=== PATIENT | female | born 1960 | race Caucasian/White ===

== ENCOUNTER 2019-03-13 06:23 | Day surgery (SDC) | payer OTHER ==
[~2019-03-13] VITALS: Ht 157.5 cm; Wt 77.7 kg
[~2019-03-13 06:23] MED LIST: ALLO300 PO; BUME1TAB17 PO; COLC0.6T67 PO; DABI150 PO; FAMO20 PO; FERR-89 PO; FOLI1 PO; IRBE150T51 PO; LEVO150 PO; METO-391 PO; SODIUM CHLORIDE 0.9% 1,000 ML IV ONE; SPIR50 PO; [UNRECOGNIZED DRUG - CODE] PO
[2019-03-13] MEDS ORDERED: PROPOFOL 1% 20 ML VIAL IVP ONE (12:00)
[2019-03-13] MEDS ORDERED: LIDOCAINE/PF 2% 5 ML VIAL INJ ONE (12:00)
[2019-03-13] MEDS ORDERED: MIDAZOLAM HCL 2 MG/2 ML VIAL IVP ONE (12:00)
== END 2019-03-13 09:30 | disposition home or self-care (01) ==
LOC: SURGERY 06:23
PROVIDERS: ATTEND Student in an Organized Health Care Education/Training Program
DX: K62.1 Rectal polyp (principal); K63.89 Other specified diseases of intestine; K64.8 Other hemorrhoids; K63.5 Polyp of colon; K57.30 Diverticulosis of large intestine without perforation or abscess without bleeding; G47.33 Obstructive sleep apnea (adult) (pediatric); I48.2 Chronic atrial fibrillation; K74.60 Unspecified cirrhosis of liver; D50.9 Iron deficiency anemia, unspecified; I50.30 Unspecified diastolic (congestive) heart failure; Z90.49 Acquired absence of other specified parts of digestive tract; I42.1 Obstructive hypertrophic cardiomyopathy; E03.9 Hypothyroidism, unspecified; Z79.01 Long term (current) use of anticoagulants; E66.9 Obesity, unspecified; I27.20 Pulmonary hypertension, unspecified; Z95.9 Presence of cardiac and vascular implant and graft, unspecified; Z79.899 Other long term (current) drug therapy; Z82.49 Family history of ischemic heart disease and other diseases of the circulatory system; Z80.8 Family history of malignant neoplasm of other organs or systems; Z87.891 Personal history of nicotine dependence; Z98.890 Other specified postprocedural states
CPT/HCPCS: 45380; 88305; 93005; C1769; J2250; J2704; J3490; J7030